=== PATIENT | male | born 1980 | race Caucasian/White ===

== ENCOUNTER 2020-10-25 07:21 | Outpatient (REF) | payer OTHER, SELFPAY | END 2020-10-25 07:22 | disposition home or self-care (01) | LOC: HO.LAB 07:21 | PROVIDERS: Visit Provider Internal Medicine | DX: Z20.828 Contact with and (suspected) exposure to other viral communicable diseases (principal) | CPT/HCPCS: C9803; U0003 ==

== ENCOUNTER 2020-11-03 18:01 | Outpatient (REF) | payer OTHER, SELFPAY | END 2020-11-03 18:02 | disposition home or self-care (01) | LOC: HO.LNP 18:01 | PROVIDERS: Visit Provider Family Medicine | DX: Z20.828 Contact with and (suspected) exposure to other viral communicable diseases (principal) | CPT/HCPCS: U0003 ==

== ENCOUNTER 2024-05-14 09:00 | Emergency (ER) | payer OTHER, SELFPAY ==
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
[2024-05-14 09:01] VITALS: BP 151/96; PULSE 68; RESP 18; TEMP 36.3; O2SAT 100; BMI 30.3
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
[2024-05-14 11:08] VITALS: BP 151/96; PULSE 68; RESP 18; TEMP 36.3; O2SAT 100
== END 2024-05-14 11:09 | disposition home or self-care (01) ==
PROVIDERS: Emergency Provider Emergency Medicine; PCP Internal Medicine
DX: S80.11XA Contusion of right lower leg, initial encounter (principal); M25.571 Pain in right ankle and joints of right foot; Y29.XXXA Contact with blunt object, undetermined intent, initial encounter; Y93.66 Activity, soccer; Y92.9 Unspecified place or not applicable; Y99.8 Other external cause status
CPT/HCPCS: 73590; 73600; 99282; 99283